=== PATIENT | female | born 1985 | race American Indian/Alaskan Native ===

== ENCOUNTER 2016-05-25 09:39 | Emergency (ER) | payer SELFPAY ==
[2016-05-25 10:13] VITALS: BP 106/72
[2016-05-25 12:21] LABS: Mucus,Urine 3+ /HPF
[2016-05-25 12:30] LABS: Bilirubin,Urine NEG (Negative); Blood,Urine SM (Negative); Ketones,Urine NEG (Negative); Leukocyte Esterase,Urine LG (Negative); Nitrite,Urine NEG (Negative); Urobilinogen,Urine < 2.0 mg/dL (<2.0)
--- NOTE | 2016-05-25 13:57 | Emergency Department Report ---
HPI - General Chief Complaint: Urogenital-Female Time Seen by Provider: 05/25/16 12:01 - HPI HPI: 31-year-old female presents today with suprapubic pain with urination. Patient states that she had a cold house E1.5 weeks ago with postprocedure bleeding and has had suprapubic pain since. Denies blood in urine now. Denies burning upon urination, increased urinary frequency or urgency. Positive for vaginal discharge, white in color with odor. Denies fever, chills, nausea, vomiting, chest pain, shortness of breath, abdominal pain. ED Past Medical Hx - Medications Home Medications: Home Medications Medication Instructions Recorded Confirmed Last Taken Type Fluconazole [Diflucan TAB] 150 mg PO ONCE #1 tablet 05/25/16 Unknown Rx Sulfamethoxazole/Trimethoprim 1 each PO BID #6 tablet 05/25/16 Unknown Rx [Bactrim DS TAB] metroNIDAZOLE [Flagyl] 500 mg PO Q12HR #14 tab 05/25/16 Unknown Rx ED Review of Systems ROS: Stated complaint: PAIN DURING URINATION/ PREV BLOOD IN URINE Other details as noted in HPI Constitutional: denies: chills, fever, malaise Eyes: denies: eye pain ENT: denies: ear pain, throat pain, congestion Respiratory: denies: cough, shortness of breath, wheezing Cardiovascular: denies: chest pain, palpitations Endocrine: no symptoms reported Gastrointestinal: abdominal pain. denies: nausea, vomiting Genitourinary: discharge. denies: urgency, dysuria, frequency, hematuria Skin: denies: rash Neurological: denies: headache, weakness Physical Exam - Physical Exam Vital Signs: Vital Signs 05/25/16 10:10 Temperature 98.1 F Pulse Rate 75 Respiratory 16 Rate Blood Pressure 106/72 O2 Sat by Pulse 100 Oximetry Physical Exam: GENERAL: The patient is well-developed and well-nourished. Patient is in NAD. HEAD: Normocephalic. Atraumatic. CHEST/LUNGS: Clear to auscultation throughout. HEART/CARDIOVASCULAR: Regular rate and rhythm. ABDOMEN: Abdomen is soft, nontender. Bowel sounds normoactive. No guarding or rebound tenderness. Negative for CVA tenderness bilaterally. GENITALS: Positive for enlargement of left Bartholin's gland, chronic. Positive for white milky discharge in the vaginal canal. No bleeding noted. EXTREMITIES: Peripheral pulses intact. Capillary refill less than 2 seconds. NEURO: Alert and oriented x 3. Normal gait. ED Course Vital Signs 05/25/16 10:10 Temperature 98.1 F Pulse Rate 75 Respiratory 16 Rate Blood Pressure 106/72 O2 Sat by Pulse 100 Oximetry ED Medical Decision Making - Lab Data Vital Signs 05/25/16 10:10 Temperature 98.1 F Pulse Rate 75 Respiratory 16 Rate Blood Pressure 106/72 O2 Sat by Pulse 100 Oximetry Lab Results 05/25/16 Range/Units Unknown Urine Color Yellow (Yellow) Urine Turbidity Cloudy (Clear) Urine pH 5.0 (5.0-7.0) Ur Specific Drain 1.027 (1.003-1.030) Urine Protein 30 mg/dl (Negative) mg/dL Urine Glucose (UA) Neg (Negative) mg/dL Urine Ketones Neg (Negative) mg/dL Urine Blood Sm (Negative) Urine Nitrite Neg (Negative) Ur Reducing Substances Not Reportable Urine Bilirubin Neg (Negative) Urine Ictotest Not Reportable Urine Urobilinogen < 2.0 (<2.0) mg/dL Ur Leukocyte Esterase Lg (Negative) Urine WBC (Auto) 76.0 H (0.0-6.0) /HPF Urine RBC (Auto) 9.0 (0.0-6.0) /HPF U Epithel Cells (Auto) 120.0 H (0-13.0) /HPF Urine Mucus 3+ /HPF Urine HCG, Qual Negative (Negative) - Medical Decision Making 31-year-old female presents today with suprapubic pain with urination and vaginal discharge. Her urinalysis reveals elevated leukocyte Estrace and urine WBC. Her wet prep is positive for clue cells. Patient is in no acute distress at this time. She will be discharged home and is encouraged to follow up with a primary care provider. She will be sent home on Bactrim and Flagyl and is encouraged to return to the emergency room for any worsening symptoms. Critical care attestation.: If time is entered above; I have spent that time in minutes in the direct care of this critically ill patient, excluding procedure time. ED Disposition Clinical Impression: Bacterial vaginosis UTI (urinary tract infection) Qualifiers: Urinary tract infection type: acute cystitis Hematuria presence: with hematuria Qualified Code(s): N30.01 - Acute cystitis with hematuria Disposition: DISCHARGED TO HOME OR SELFCARE Is pt being admited?: No Does the pt Need Aspirin: No Condition: Stable Instructions: Bacterial Vaginosis (ED), Urinary Tract Infection in Women (ED) Additional Instructions: Follow-up with primary care provider. Return to the emergency department if symptoms worsen. Prescriptions: Fluconazole [Diflucan TAB] 150 mg PO ONCE #1 tablet metroNIDAZOLE [Flagyl] 500 mg PO Q12HR #14 tab Sulfamethoxazole/Trimethoprim [Bactrim DS TAB] 1 each PO BID #6 tablet Referrals: PRIMARY CARE, [Primary Care Provider] - 3-5 Days [facility] [Outside] - 3-5 Days Forms: STI Treatment and Prevention, Work/School Release Form(ED), Accompanied Note Time of Disposition: 13:59
== END 2016-05-25 14:28 | disposition home or self-care (01) ==
LOC: ED 09:39
DX: N30.01 Acute cystitis with hematuria (principal); N76.0 Acute vaginitis
CPT/HCPCS: 81001; 81025; 87210; 87591; 99283

== ENCOUNTER 2016-06-01 00:38 | Emergency (ER) | payer OTHER ==
[2016-06-01] MEDS ORDERED: NORCO 10/325 PO ONE (07:53)
--- NOTE | 2016-06-01 09:37 | Emergency Department Report ---
- General Chief complaint: Skin/Abscess/Foreign Body Stated complaint: CYST Time Seen by Provider: 06/01/16 07:52 Source: patient Mode of arrival: Wheelchair Limitations: No Limitations - History of Present Illness Initial comments: 31-year-old female comes in with complaint of ruptured vaginal cyst that started about 2 hours ago prior to arrival to the emergency room. Patient reports that she has been dealing with a Bartholin gland cyst with the past couple of months. She reports that her [employer] doctor wants her to have surgery and comes in she reports that she wants to get it surgically removed. Patient denies any fever or chills she is currently still on Flagyl as well as Bactrim. She reports that the pain is a 10 out of 10. She reports that the cyst is covering the opening to her vaginal area. - Related Data Previous Rx's Medication Instructions Recorded Last Taken Type Fluconazole [Diflucan TAB] 150 mg PO ONCE #1 tablet 05/25/16 Unknown Rx Sulfamethoxazole/Trimethoprim 1 each PO BID #6 tablet 05/25/16 Unknown Rx [Bactrim DS TAB] metroNIDAZOLE [Flagyl TAB] 500 mg PO Q12HR #14 tab 05/25/16 Unknown Rx Ibuprofen [Motrin 800 MG tab] 800 mg PO Q8HR PRN #60 tablet 06/01/16 Unknown Rx Allergies Allergy/AdvReac Type Severity Reaction Status Date / Time No Known Allergies Allergy Unverified 05/25/16 10:10 Abscess Boil HPI - HPI Chief Complaint: Skin/Abscess/Foreign Body Stated Complaint: CYST Time Seen by Provider: 06/01/16 07:52 Home Medications: Previous Rx's Medication Instructions Recorded Last Taken Type Fluconazole [Diflucan TAB] 150 mg PO ONCE #1 tablet 05/25/16 Unknown Rx Sulfamethoxazole/Trimethoprim 1 each PO BID #6 tablet 05/25/16 Unknown Rx [Bactrim DS TAB] metroNIDAZOLE [Flagyl TAB] 500 mg PO Q12HR #14 tab 05/25/16 Unknown Rx Ibuprofen [Motrin 800 MG tab] 800 mg PO Q8HR PRN #60 tablet 06/01/16 Unknown Rx Allergies/Adverse Reactions: Allergies Allergy/AdvReac Type Severity Reaction Status Date / Time No Known Allergies Allergy Unverified 05/25/16 10:10 ED Review of Systems ROS: Stated complaint: CYST Other details as noted in HPI Constitutional: denies: chills, fever Genitourinary: dyspareunia, other (cysts in the vaginal orifice) Skin: lesions ED Past Medical Hx - Past Medical History Previous Medical History?: No - Surgical History Past Surgical History?: Yes Additional Surgical History: hernia repair - Social History Smoking Status: Current Every Day Smoker - Medications Home Medications: Home Medications Medication Instructions Recorded Confirmed Last Taken Type Fluconazole [Diflucan TAB] 150 mg PO ONCE #1 tablet 05/25/16 Unknown Rx Sulfamethoxazole/Trimethoprim 1 each PO BID #6 tablet 05/25/16 Unknown Rx [Bactrim DS TAB] metroNIDAZOLE [Flagyl TAB] 500 mg PO Q12HR #14 tab 05/25/16 Unknown Rx Ibuprofen [Motrin 800 MG tab] 800 mg PO Q8HR PRN #60 tablet 06/01/16 Unknown Rx ED Physical Exam - General Limitations: No Limitations General appearance: alert, in no apparent distress - External exam: Present: swelling (left labia minora area of the Bartholin's cysts with tenderness) - Extremities Exam Extremities exam: Present: normal inspection ED Course Vital Signs 06/01/16 00:48 Temperature 97.9 F Pulse Rate 58 L Respiratory 18 Rate Blood Pressure 103/68 [Left] O2 Sat by Pulse 99 Oximetry - Reevaluation(s) Reevaluation #1: 06/01/16 09:44 Patient reports that she feels much relief after the I&D of the Bartholin's cyst. - I & D Left Vagina Site: left Bartholin's gland Blade Size: 11 I & D Procedure: betadine prep Progress: Word catheter placed ED Medical Decision Making - Medical Decision Making Patient's been evaluated by this provider fast track. Given the patient [place] 10/325 for pain. I&D was performed when the Bartholin gland left side. Copious amount of purulent bloody clot material discharged. Discharge patient on pain medication and to continue with the antibiotics as prescribed. Critical care attestation.: If time is entered above; I have spent that time in minutes in the direct care of this critically ill patient, excluding procedure time. ED Disposition Clinical Impression: Bartholin's gland abscess Disposition: DISCHARGED TO HOME OR SELFCARE Is pt being admited?: No Does the pt Need Aspirin: No Condition: Stable Instructions: Bartholin Cyst (ED), Incision and Drainage (ED) Additional Instructions: Complete antibiotics as prescribed. Very importantly to follow up with her [employer] provider. Use pain medication as prescribed. Prescriptions: Ibuprofen [Motrin 800 MG tab] 800 mg PO Q8HR PRN #60 tablet PRN Reason: Pain Referrals: PRIMARY CARE, [Primary Care Provider] - 3-5 Days Forms: Work/School Release Form(ED)
[2016-06-01 10:10] VITALS: BP 110/70
== END 2016-06-01 10:10 | disposition home or self-care (01) ==
LOC: ED 00:38
DX: N75.1 Abscess of Bartholin's gland (principal); F17.200 Nicotine dependence, unspecified, uncomplicated

== ENCOUNTER 2016-12-17 18:05 | Emergency (ER) | payer SELFPAY ==
[2016-12-17] MEDS ORDERED: NORCO 10/325 ONE (23:42)
[2016-12-17] MEDS ORDERED: ZOFRAN ODT ONE (23:42)
--- NOTE | 2016-12-17 23:48 | Emergency Department Report ---
ED Female HPI - General Chief complaint: Skin/Abscess/Foreign Body Stated complaint: CYST Time Seen by Provider: 12/17/16 23:36 Source: patient Mode of arrival: Ambulatory Limitations: No Limitations - History of Present Illness Initial comments: 31-year-old female past medical history Bartholin's cyst presents with complaint of vaginal discomfort and vaginal swelling for several days. Denies fever or chills. MD Complaint: pelvic pain - Related Data Previous Rx's Medication Instructions Recorded Last Taken Type Fluconazole [Diflucan TAB] 150 mg PO ONCE #1 tablet 05/25/16 Unknown Rx Sulfamethoxazole/Trimethoprim 1 each PO BID #6 tablet 05/25/16 Unknown Rx [Bactrim DS TAB] metroNIDAZOLE [Flagyl TAB] 500 mg PO Q12HR #14 tab 05/25/16 Unknown Rx Ibuprofen [Motrin 800 MG tab] 800 mg PO Q8HR PRN #60 tablet 06/01/16 Unknown Rx Valacyclovir HCl [Valtrex] 1,000 mg PO BID #20 tab 06/01/16 Unknown Rx HYDROcodone/APAP 5-325 [[place] 1 each PO Q6HR PRN #14 tablet 12/17/16 Unknown Rx 5/325] Ibuprofen [Motrin] 600 mg PO Q8H PRN #25 tablet 12/17/16 Unknown Rx Sulfamethoxazole/Trimethoprim 1 each PO BID #14 tablet 12/17/16 Unknown Rx [Bactrim DS TAB] Allergies Allergy/AdvReac Type Severity Reaction Status Date / Time No Known Allergies Allergy Verified 12/17/16 18:09 ED Review of Systems ROS: Stated complaint: CYST Other details as noted in HPI ED Past Medical Hx - Past Medical History Previous Medical History?: Yes - Surgical History Additional Surgical History: hernia repair - Social History Smoking Status: Never Smoker Substance Use Type: None - Medications Home Medications: Home Medications Medication Instructions Recorded Confirmed Last Taken Type Fluconazole [Diflucan TAB] 150 mg PO ONCE #1 tablet 05/25/16 Unknown Rx Sulfamethoxazole/Trimethoprim 1 each PO BID #6 tablet 05/25/16 Unknown Rx [Bactrim DS TAB] metroNIDAZOLE [Flagyl TAB] 500 mg PO Q12HR #14 tab 05/25/16 Unknown Rx Ibuprofen [Motrin 800 MG tab] 800 mg PO Q8HR PRN #60 tablet 06/01/16 Unknown Rx Valacyclovir HCl [Valtrex] 1,000 mg PO BID #20 tab 06/01/16 Unknown Rx HYDROcodone/APAP 5-325 [[place] 1 each PO Q6HR PRN #14 tablet 12/17/16 Unknown Rx 5/325] Ibuprofen [Motrin] 600 mg PO Q8H PRN #25 tablet 12/17/16 Unknown Rx Sulfamethoxazole/Trimethoprim 1 each PO BID #14 tablet 12/17/16 Unknown Rx [Bactrim DS TAB] ED Physical Exam - General Limitations: No Limitations ED Course Vital Signs 12/17/16 18:09 Temperature 98.6 F Pulse Rate 81 Respiratory 18 Rate Blood Pressure 121/85 O2 Sat by Pulse 100 Oximetry - I & D Left Vagina Type of Procedure: Complex Site: left bartholins gland Blade Size: 11 Critical care attestation.: If time is entered above; I have spent that time in minutes in the direct care of this critically ill patient, excluding procedure time. ED Disposition Clinical Impression: Infected cyst of Bartholin's gland duct Disposition: TO HOME OR SELFCARE Is pt being admited?: No Does the pt Need Aspirin: No Condition: Stable Instructions: Incision and Drainage (ED), Bartholin Cyst (ED) Additional Instructions: Patient to return to the ED in 48 hours for wound check Prescriptions: HYDROcodone/APAP 5-325 [[place] 5/325] 1 each PO Q6HR PRN #14 tablet PRN Reason: Pain Ibuprofen [Motrin] 600 mg PO Q8H PRN #25 tablet PRN Reason: Pain Sulfamethoxazole/Trimethoprim [Bactrim DS TAB] 1 each PO BID #14 tablet Referrals: [facility] [Provider Group] - 3-5 Days Forms: Work/School Release Form(ED) Time of Disposition: 23:53
[2016-12-18 00:09] VITALS: BP 112/78
[2016-12-18] MEDS ORDERED: NORCO 10/325 PO ONE (01:20)
[2016-12-18] MEDS ORDERED: ZOFRAN ODT PO ONE (01:21)
== END 2016-12-18 00:07 | disposition home or self-care (01) ==
LOC: ED 18:05
DX: N75.8 Other diseases of Bartholin's gland (principal); Z98.890 Other specified postprocedural states
CPT/HCPCS: 87116; Q0162

== ENCOUNTER 2016-12-27 18:31 | Emergency (ER) | payer SELFPAY | END 2016-12-27 18:54 | disposition left against medical advice (07) | LOC: ED 18:31 | DX: Z53.21 Procedure and treatment not carried out due to patient leaving prior to being seen by health care provider (principal) ==

== ENCOUNTER 2016-12-27 18:32 | Emergency (ER) | payer SELFPAY | END 2016-12-28 07:00 | disposition left against medical advice (07) | LOC: ED 18:32 | DX: Z53.21 Procedure and treatment not carried out due to patient leaving prior to being seen by health care provider (principal) ==

== ENCOUNTER 2017-01-03 17:47 | Emergency (ER) | payer SELFPAY ==
[2017-01-03 18:01] VITALS: BP 115/82
[2017-01-03 18:24] LABS: Basophils % (Auto) 0.3 % (0.0-1.8); Hematocrit 37.1 % (30.3-42.9); Hemoglobin 12.1 gm/dl (10.1-14.3); Mean Corpuscular HGB Conc 33 % (30-34); Mean Corpuscular Hemoglobin 28 pg (28-32); Mean Corpuscular Volume 87 fl (79-97); Platelet Count 193 K/mm3 (140-440); Red Blood Count 4.27 M/mm3 (3.65-5.03); White Blood Count 7.4 K/mm3 (4.5-11.0)
[2017-01-03 18:44] LABS: Anion Gap 18 mmol/L; Blood Urea Nitrogen 11 mg/dL (7-17); Calcium 9.2 mg/dL (8.4-10.2); Carbon Dioxide 25 mmol/L (22-30); Chloride 102.7 mmol/L (98-107); Glucose 92 mg/dL (65-100); Potassium 4.4 mmol/L (3.6-5.0); Sodium 141 mmol/L (137-145)
== END 2017-01-04 04:10 | disposition left against medical advice (07) ==
LOC: ED 17:47
DX: R07.9 Chest pain, unspecified (principal); Z53.21 Procedure and treatment not carried out due to patient leaving prior to being seen by health care provider
CPT/HCPCS: 36415; 80048; 84484; 85025; 93005; 93010

== ENCOUNTER 2017-05-01 06:11 | Emergency (ER) | payer SELFPAY ==
[2017-05-01 06:30] VITALS: BP 117/81
[2017-05-01 10:22] LABS: Bacteria,Urine 1+ /HPF (Negative); Bilirubin,Urine NEG (Negative); Blood,Urine LG (Negative); Color,Urine Yellow (Yellow); Mucus,Urine FEW /HPF; Nitrite,Urine NEG (Negative); Urobilinogen,Urine < 2.0 mg/dL (<2.0)
[2017-05-01 10:24] LABS: RBC,Urine > 182.0 /HPF (0.0-6.0)
[2017-05-01 10:25] LABS: HCG Qualitative,Urine Negative (Negative)
--- NOTE | 2017-05-01 10:25 | Emergency Department Report ---
ED Female HPI - General Chief complaint: Urogenital-Female Stated complaint: VAGINAL BLEEDING,PAIN Time Seen by Provider: 05/01/17 09:06 Source: patient Mode of arrival: Ambulatory Limitations: No Limitations - History of Present Illness Initial comments: This is a 32-year-old female nontoxic, well nourished in appearance, no acute signs of distress presents to the ED with c/o of dysuria, polyuria, hematuria 2 days. Patient denies any back pain, chest pain, shortness of breath, fever, chills, nausea, vomiting, headache or stiff neck. Patient denies any numbness or tingling. Patient denies any vaginal discharge or vaginal bleeding. Patient denies any allergies or past medical history. Last menstrual cycle 04/2016. Complaint: dysuria -: days(s) Severity: mild Severity scale (0 -10): 8 Quality: burning Consistency: constant Improves with: none Worsens with: urination Are you Now?: No Last Menstrual Period: 02/09/17 EDC: 11/16/17 Associated Symptoms: dysuria, hematuria. denies: vaginal discharge, vaginal bleeding, abdominal pain, nausea/vomiting, fever/chills, headaches, loss of appetite, rash, seizure, shortness of breath, syncope, weakness - Related Data Sexually active: Yes Previous Rx's Medication Instructions Recorded Last Taken Type Fluconazole [Diflucan TAB] 150 mg PO ONCE #1 tablet 05/25/16 Unknown Rx Sulfamethoxazole/Trimethoprim 1 each PO BID #6 tablet 05/25/16 Unknown Rx [Bactrim DS TAB] metroNIDAZOLE [Flagyl TAB] 500 mg PO Q12HR #14 tab 05/25/16 Unknown Rx Ibuprofen [Motrin 800 MG tab] 800 mg PO Q8HR PRN #60 tablet 06/01/16 Unknown Rx Valacyclovir HCl [Valtrex] 1,000 mg PO BID #20 tab 06/01/16 Unknown Rx HYDROcodone/APAP 5-325 [[place] 1 each PO Q6HR PRN #14 tablet 12/17/16 Unknown Rx 5/325] Ibuprofen [Motrin] 600 mg PO Q8H PRN #25 tablet 12/17/16 Unknown Rx Sulfamethoxazole/Trimethoprim 1 each PO BID #14 tablet 12/17/16 Unknown Rx [Bactrim DS TAB] Sulfamethoxazole/Trimethoprim 1 each PO BID #14 tablet 05/01/17 Unknown Rx [Bactrim DS TAB] Allergies Allergy/AdvReac Type Severity Reaction Status Date / Time No Known Allergies Allergy Verified 12/17/16 18:09 ED Review of Systems ROS: Stated complaint: VAGINAL BLEEDING,PAIN Other details as noted in HPI Constitutional: denies: chills, fever Eyes: denies: eye pain, eye discharge, vision change ENT: denies: ear pain, throat pain Respiratory: denies: cough, shortness of breath, wheezing Cardiovascular: denies: chest pain, palpitations Endocrine: no symptoms reported Gastrointestinal: denies: abdominal pain, nausea, diarrhea Genitourinary: urgency, dysuria, frequency, hematuria. denies: discharge Musculoskeletal: denies: back pain, joint swelling, arthralgia Skin: denies: rash, lesions Neurological: denies: headache, weakness, paresthesias Psychiatric: denies: anxiety, depression Hematological/Lymphatic: denies: easy bleeding, easy bruising ED Past Medical Hx - Past Medical History Previous Medical History?: No - Surgical History Past Surgical History?: Yes Additional Surgical History: hernia repair - Social History Smoking Status: Never Smoker Substance Use Type: None - Medications Home Medications: Home Medications Medication Instructions Recorded Confirmed Last Taken Type Fluconazole [Diflucan TAB] 150 mg PO ONCE #1 tablet 05/25/16 Unknown Rx Sulfamethoxazole/Trimethoprim 1 each PO BID #6 tablet 05/25/16 Unknown Rx [Bactrim DS TAB] metroNIDAZOLE [Flagyl TAB] 500 mg PO Q12HR #14 tab 05/25/16 Unknown Rx Ibuprofen [Motrin 800 MG tab] 800 mg PO Q8HR PRN #60 tablet 06/01/16 Unknown Rx Valacyclovir HCl [Valtrex] 1,000 mg PO BID #20 tab 06/01/16 Unknown Rx HYDROcodone/APAP 5-325 [[place] 1 each PO Q6HR PRN #14 tablet 12/17/16 Unknown Rx 5/325] Ibuprofen [Motrin] 600 mg PO Q8H PRN #25 tablet 12/17/16 Unknown Rx Sulfamethoxazole/Trimethoprim 1 each PO BID #14 tablet 12/17/16 Unknown Rx [Bactrim DS TAB] Sulfamethoxazole/Trimethoprim 1 each PO BID #14 tablet 05/01/17 Unknown Rx [Bactrim DS TAB] ED Physical Exam - General Limitations: No Limitations General appearance: alert, in no apparent distress - Head Head exam: Present: atraumatic, normocephalic, normal inspection - Eye Eye exam: Present: normal appearance, PERRL, EOMI. Absent: scleral icterus, conjunctival injection, nystagmus, periorbital swelling, periorbital tenderness Pupils: Present: normal accommodation - ENT ENT exam: Present: normal exam, normal orophraynx, mucous membranes moist, TM's normal bilaterally, normal external ear exam - Neck Neck exam: Present: normal inspection, full ROM. Absent: tenderness, meningismus, lymphadenopathy, thyromegaly - Respiratory Respiratory exam: Present: normal lung sounds bilaterally. Absent: respiratory distress, wheezes, rales, rhonchi, stridor, chest wall tenderness, accessory muscle use, decreased breath sounds, prolonged expiratory - Cardiovascular Cardiovascular Exam: Present: regular rate, normal rhythm, normal heart sounds. Absent: irregular rhythm, systolic murmur, diastolic murmur, rubs, gallop - GI/Abdominal GI/Abdominal exam: Present: soft, normal bowel sounds. Absent: distended, tenderness, guarding, rebound, rigid, diminished bowel sounds - Rectal Rectal exam: Present: deferred - Extremities Exam Extremities exam: Present: normal inspection, full ROM, normal capillary refill. Absent: tenderness, pedal edema, joint swelling, calf tenderness - Back Exam Back exam: Present: normal inspection, full ROM. Absent: tenderness, CVA tenderness (R), CVA tenderness (L), muscle spasm, paraspinal tenderness, vertebral tenderness, rash noted - Neurological Exam Neurological exam: Present: alert, oriented X3, CN II-XII intact, normal gait, reflexes normal - Psychiatric Psychiatric exam: Present: normal affect, normal mood - Skin Skin exam: Present: warm, dry, intact, normal color. Absent: rash ED Course Vital Signs 05/01/17 05/01/17 06:25 07:04 Temperature 98.3 F 98.3 F Pulse Rate 92 H 90 Respiratory 18 17 Rate Blood Pressure 117/81 117/81 O2 Sat by Pulse 98 99 Oximetry - Reevaluation(s) Reevaluation #1: 05/01/17 10:25 Patient is speaking in full sentences with no signs of distress noted. ED Medical Decision Making - Medical Decision Making This is a 32-year-old female that presents with UTI. Patient is stable and was examined by me. UA obtained. Negative test. Patient received Rocephin 1G IM in the ED. Patient received Bactrim at discharge. Patient was instructed Follow-up with a primary care doctor in 3-5 days or if symptoms worsen and continue return to emergency room as soon as possible. At time time of discharge, the patient does not seem toxic or ill in appearance. No acute signs of distress noted. Patient agrees to discharge treatment plan of care. No further questions noted by the patient. Critical care attestation.: If time is entered above; I have spent that time in minutes in the direct care of this critically ill patient, excluding procedure time. ED Disposition Clinical Impression: UTI (urinary tract infection) Qualifiers: Urinary tract infection type: site unspecified Hematuria presence: with hematuria Qualified Code(s): N39.0 - Urinary tract infection, site not specified Disposition: - TO HOME OR SELFCARE Is pt being admited?: No Does the pt Need Aspirin: No Condition: Stable Instructions: Sulfamethoxazole/Trimethoprim (By mouth), Urinary Tract Infection in Women (ED) Additional Instructions: Follow-up with a primary care doctor in 3-5 days or if symptoms worsen and continue return to emergency room as soon as possible. Prescriptions: Sulfamethoxazole/Trimethoprim [Bactrim DS TAB] 1 each PO BID #14 tablet Referrals: NORRIS BEAL MD [Primary Care Provider] - 3-5 Days PRIMARY CARE, [Referring] - 3-5 Days [facility] [Outside] - 3-5 Days [facility] [Outside] - 3-5 Days Forms: Work/School Release Form(ED)
[2017-05-01] MEDS ORDERED: ROCEPHIN IM ONE (10:31)
[2017-05-01] MEDS ORDERED: XYLOCAINE 1% MPF 5 mL INFILTRATI ONE (10:31)
== END 2017-05-01 10:59 | disposition home or self-care (01) ==
LOC: ED 06:11
DX: N39.0 Urinary tract infection, site not specified (principal)
CPT/HCPCS: 81001; 81025; 96372; 99283; J0696

== ENCOUNTER 2017-11-26 11:16 | Emergency (ER) | payer OTHER ==
[2017-11-26 11:54] VITALS: BP 104/64
--- NOTE | 2017-11-26 13:36 | Emergency Department Report ---
ED Female HPI - General Chief complaint: Urogenital-Female Stated complaint: VAG CYST RAPTURED Time Seen by Provider: 11/26/17 13:09 Source: patient Mode of arrival: Ambulatory Limitations: No Limitations - History of Present Illness Initial comments: This is a 32-year-old -[place] female who presents to drainage from ruptured cysts and vaginal discharge. Patient states she had cysts to the area for several years. She was follow by [facility] in the past but has not had time to follow-up with them. Patient states yesterday this cyst rupture and she is now having foul drainage from site. Patient states she is also having some vaginal discharge for 2 weeks with yellowish discharge. She is also complaining of low pelvic pain is intermittent but currently resolved. She admits to exposure to sexually transmitted diseases. Patient denies frequency, urgency, dysuria, low back pain, and fever. MD Complaint: vaginal discharge, pelvic pain Onset/Timin -: week(s) Location: labia Radiation: non-radiating Severity: mild Severity scale (0 -10): 2 Consistency: intermittent Improves with: none Worsens with: none Are you Now?: No Associated Symptoms: vaginal discharge, abdominal pain (suprapubic pressure). denies: vaginal bleeding, nausea/vomiting, fever/chills, headaches, loss of appetite, dysuria, hematuria, rash, seizure, shortness of breath, syncope, weakness - Related Data Sexually active: Yes Previous Rx's Medication Instructions Recorded Last Taken Type Fluconazole [Diflucan TAB] 150 mg PO ONCE #1 tablet 05/25/16 Unknown Rx Sulfamethoxazole/Trimethoprim 1 each PO BID #6 tablet 05/25/16 Unknown Rx [Bactrim DS TAB] metroNIDAZOLE [Flagyl TAB] 500 mg PO Q12HR #14 tab 05/25/16 Unknown Rx Ibuprofen [Motrin 800 MG tab] 800 mg PO Q8HR PRN #60 tablet 06/01/16 Unknown Rx Valacyclovir HCl [Valtrex] 1,000 mg PO BID #20 tab 06/01/16 Unknown Rx HYDROcodone/APAP 5-325 [[place] 1 each PO Q6HR PRN #14 tablet 12/17/16 Unknown Rx 5/325] Ibuprofen [Motrin] 600 mg PO Q8H PRN #25 tablet 12/17/16 Unknown Rx Sulfamethoxazole/Trimethoprim 1 each PO BID #14 tablet 12/17/16 Unknown Rx [Bactrim DS TAB] Sulfamethoxazole/Trimethoprim 1 each PO BID #14 tablet 05/01/17 Unknown Rx [Bactrim DS TAB] Fluconazole [Diflucan] 150 mg PO DAILY #1 tablet 11/26/17 Unknown Rx metroNIDAZOLE [Metronidazole] 500 mg PO BID #14 tablet 11/26/17 Unknown Rx Allergies Allergy/AdvReac Type Severity Reaction Status Date / Time No Known Allergies Allergy Verified 12/17/16 18:09 ED Review of Systems ROS: Stated complaint: VAG CYST RAPTURED Other details as noted in HPI Constitutional: denies: chills, fever Respiratory: denies: cough, shortness of breath, wheezing Cardiovascular: denies: chest pain, palpitations Gastrointestinal: denies: abdominal pain, nausea, vomiting, diarrhea Genitourinary: discharge, other (cyst of labia). denies: urgency, dysuria Musculoskeletal: denies: back pain, joint swelling, arthralgia Skin: denies: rash, lesions Neurological: denies: headache, weakness, paresthesias Psychiatric: denies: anxiety, depression ED Past Medical Hx - Past Medical History Previous Medical History?: Yes Hx GERD: Yes Additional medical history: Vaginal cyst, poss Bartholin cyst - Surgical History Past Surgical History?: Yes Additional Surgical History: hernia repair - Social History Smoking Status: Smoker, Current Status Unknown Substance Use Type: Marijuana - Medications Home Medications: Home Medications Medication Instructions Recorded Confirmed Last Taken Type Fluconazole [Diflucan TAB] 150 mg PO ONCE #1 tablet 05/25/16 Unknown Rx Sulfamethoxazole/Trimethoprim 1 each PO BID #6 tablet 05/25/16 Unknown Rx [Bactrim DS TAB] metroNIDAZOLE [Flagyl TAB] 500 mg PO Q12HR #14 tab 05/25/16 Unknown Rx Ibuprofen [Motrin 800 MG tab] 800 mg PO Q8HR PRN #60 tablet 06/01/16 Unknown Rx Valacyclovir HCl [Valtrex] 1,000 mg PO BID #20 tab 06/01/16 Unknown Rx HYDROcodone/APAP 5-325 [[place] 1 each PO Q6HR PRN #14 tablet 12/17/16 Unknown Rx 5/325] Ibuprofen [Motrin] 600 mg PO Q8H PRN #25 tablet 12/17/16 Unknown Rx Sulfamethoxazole/Trimethoprim 1 each PO BID #14 tablet 12/17/16 Unknown Rx [Bactrim DS TAB] Sulfamethoxazole/Trimethoprim 1 each PO BID #14 tablet 05/01/17 Unknown Rx [Bactrim DS TAB] Fluconazole [Diflucan] 150 mg PO DAILY #1 tablet 11/26/17 Unknown Rx metroNIDAZOLE [Metronidazole] 500 mg PO BID #14 tablet 11/26/17 Unknown Rx ED Physical Exam - General Limitations: No Limitations General appearance: alert, in no apparent distress - Respiratory Respiratory exam: Present: normal lung sounds bilaterally. Absent: respiratory distress - Cardiovascular Cardiovascular Exam: Present: regular rate, normal rhythm. Absent: systolic murmur, diastolic murmur, rubs, gallop - GI/Abdominal GI/Abdominal exam: Present: soft, normal bowel sounds. Absent: organomegaly, mass - External exam: Present: normal external exam Speculum exam: Present: vaginal discharge (malodorous white curdy discharge). Absent: erythema, cervical discharge, vaginal bleeding, foreign body, tissue, laceration Bi-manual exam: Present: normal bi-manual exam - Back Exam Back exam: Present: normal inspection. Absent: CVA tenderness (R), CVA tenderness (L), rash noted - Neurological Exam Neurological exam: Present: alert, oriented X3, normal gait - Psychiatric Psychiatric exam: Present: normal affect, normal mood - Skin Skin exam: Present: warm, dry, intact, normal color. Absent: rash ED Course Vital Signs 11/26/17 11:49 Temperature 98.6 F Pulse Rate 77 Respiratory 18 Rate Blood Pressure 104/64 O2 Sat by Pulse 100 Oximetry ED Medical Decision Making - Medical Decision Making This is a 32-year-old -[place] female who presents with vaginal discharge and ruptured vaginal cyst for 2 weeks. Patient was examined by me. Vitals are stable and in no acute distress. Obtained GC and wet prep via pelvic exam, and UA, urine hCG. Wet prep positive for clue cells and yeast, negative Trichomonas. Start metronidazole and Diflucan for bacterial vaginitis vaginal candidiasis. Patient given referrals to [facility] for evaluation of recurrent cyst, no visualized cyst on exam today. Discharged home in stable condition. Discussed prevention options. F/U with PCP and [facility]. Critical care attestation.: If time is entered above; I have spent that time in minutes in the direct care of this critically ill patient, excluding procedure time. ED Disposition Clinical Impression: Vaginal discharge, Bacterial vaginitis, Vaginal candidiasis Disposition: - TO HOME OR SELFCARE Is pt being admited?: No Does the pt Need Aspirin: No Condition: Stable Instructions: Bacterial Vaginosis (ED), Vulvovaginal Candidiasis (ED) Additional Instructions: Avoid drinking alcohol while taking antibiotics and for 24 hours after completion. Continue safe sexual intercourse. Follow up with [facility] for recurrent vaginal cyst. Follow up with Primary Care Provider or health department. Prescriptions: Fluconazole [Diflucan] 150 mg PO DAILY #1 tablet metroNIDAZOLE [Metronidazole] 500 mg PO BID #14 tablet Referrals: HOUSTON ADAMES MD [Staff Physician] - 3-5 Days [facility] [Outside] - 3-5 Days Forms: STI Treatment and Prevention Time of Disposition: 15:07 Print Language: MONTSERRATIAN
[2017-11-26 14:32] LABS: Bilirubin,Urine NEG (Negative); Blood,Urine NEG (Negative); Color,Urine Yellow (Yellow); Mucus,Urine 1+ /HPF; Protein,Urine <15 mg/dL mg/dL (Negative)
[2017-11-26 14:36] LABS: HCG Qualitative,Urine Negative (Negative)
== END 2017-11-26 15:08 | disposition home or self-care (01) ==
LOC: ED 11:16
DX: N76.0 Acute vaginitis (principal); B96.89 Other specified bacterial agents as the cause of diseases classified elsewhere; B37.3 Candidiasis of vulva and vagina; K21.9 Gastro-esophageal reflux disease without esophagitis; F12.10 Cannabis abuse, uncomplicated
CPT/HCPCS: 81001; 81025; 87210; 87591; 99284

== ENCOUNTER 2018-06-12 13:30 | Emergency (ER) | payer BC ==
--- NOTE | 2018-06-12 14:04 | Emergency Department Report ---
Chief Complaint: Abdominal Pain Stated Complaint: ABD PAIN/DISCOMFORT VAGINAL AREA Time Seen by Provider: 06/12/18 14:00 - HPI History of Present Illness: Pt is c/o lower abdominal pain that began two weeks ago stabbing pain (+) urinary frequency, vaginal discharge no fever one episode of emesis denies itching or burning has not had menstrual cycle in a year, irregular cycles not on contraceptive, has not seen [facility] in over a year MSE complete MSE screening note: Focused history and physical exam performed. Due to findings the following was ordered: UA, urine preg, abdominal labs, and pelvic US ED Disposition for MSE Condition: Stable Instructions: Abdominal Pain (ED)
[2018-06-12 14:56] LABS: Basophils % (Auto) 0.1 % (0.0-1.8); Eosinophils % (Auto) 0.7 % (0.0-4.3); Hematocrit 36.6 % (30.3-42.9); Hemoglobin 12.2 gm/dl (10.1-14.3); Lymphocytes # (Auto) 3.4 K/mm3 (1.2-5.4); Lymphocytes % (Auto) 54.1 % (13.4-35.0); Mean Corpuscular HGB Conc 33 % (30-34); Mean Corpuscular Volume 88 fl (79-97); Monocytes # (Auto) 0.5 K/mm3 (0.0-0.8); Monocytes % (Auto) 8.5 % (0.0-7.3); Platelet Count 196 K/mm3 (140-440); Red Blood Count 4.18 M/mm3 (3.65-5.03); Red Cell Distribution Width 13.2 % (13.2-15.2)
[2018-06-12 15:09] LABS: BUN/Creatinine Ratio 11; Blood Urea Nitrogen 8 mg/dL (7-17); Calcium 9.5 mg/dL (8.4-10.2); Hemolysis Index 21
--- NOTE | 2018-06-12 16:23 | Emergency Department Report ---
HPI - General Chief Complaint: Abdominal Pain Time Seen by Provider: 06/12/18 14:00 - HPI HPI: 33-year-old female presents to the emergency department with complaint of some pelvic pain and vaginal discomfort along with some milky white discharge. It has been going on intermittently for the past few weeks. She denies any dysuria, fever, nausea, vomiting, back pain. She denies any past medical history. She has not taken anything for her symptoms prior to presentation. She does not have a primary care physician or [facility]ITION SERVICES [facility]PER[facility]OR. ED Past Medical Hx - Past Medical History Hx GERD: Yes Additional medical history: Vaginal cyst, poss Bartholin cyst - Surgical History Additional Surgical History: hernia repair - Social History Smoking Status: Current Every Day Smoker Substance Use Type: None - Medications Home Medications: Home Medications Medication Instructions Recorded Confirmed Last Taken Type Sulfamethoxazole/Trimethoprim 1 each PO BID #6 tablet 05/25/16 Unknown Rx [Bactrim DS TAB] Ibuprofen [Motrin 800 MG tab] 800 mg PO Q8HR PRN #60 tablet 06/01/16 Unknown Rx Valacyclovir HCl [Valtrex] 1,000 mg PO BID #20 tab 06/01/16 Unknown Rx HYDROcodone/APAP 5-325 [[place] 1 each PO Q6HR PRN #14 tablet 12/17/16 Unknown Rx 5/325] Ibuprofen [Motrin] 600 mg PO Q8H PRN #25 tablet 12/17/16 Unknown Rx Sulfamethoxazole/Trimethoprim 1 each PO BID #14 tablet 12/17/16 Unknown Rx [Bactrim DS TAB] Sulfamethoxazole/Trimethoprim 1 each PO BID #14 tablet 05/01/17 Unknown Rx [Bactrim DS TAB] Fluconazole [Diflucan] 150 mg PO DAILY #1 tablet 11/26/17 Unknown Rx metroNIDAZOLE [Metronidazole] 500 mg PO BID #14 tablet 11/26/17 Unknown Rx Fluconazole [Diflucan TAB] 150 mg PO ONCE #1 tablet 06/12/18 Unknown Rx metroNIDAZOLE [Flagyl TAB] 500 mg PO Q12HR #14 tab 06/12/18 Unknown Rx ED Review of Systems ROS: Stated complaint: ABD PAIN/DISCOMFORT VAGINAL AREA Other details as noted in HPI Comment: All other systems reviewed and negative Constitutional: denies: chills, fever Eyes: denies: eye pain, vision change ENT: denies: ear pain, throat pain Respiratory: denies: cough, shortness of breath Cardiovascular: denies: chest pain, palpitations Gastrointestinal: denies: abdominal pain, vomiting Genitourinary: discharge, other (pelvic pain). denies: dysuria Musculoskeletal: denies: back pain, arthralgia Skin: denies: rash, lesions Neurological: denies: headache, weakness Physical Exam - Physical Exam Vital Signs: Vital Signs 06/12/18 14:00 Temperature 98.1 F Pulse Rate 68 Respiratory 18 Rate Blood Pressure 118/73 O2 Sat by Pulse 100 Oximetry Physical Exam: GENERAL: The patient is well-developed well-nourished. HEENT: Normocephalic. Atraumatic. Patient has moist mucous membranes. EYES: Extraocular motions are intact. NECK: Supple. Trachea is midline. CHEST/LUNGS: Clear to auscultation. There is no respiratory distress noted. HEART/CARDIOVASCULAR: Regular. There is no tachycardia. There is no obvious murmur. ABDOMEN: Abdomen is soft, nontender. Patient has normal bowel sounds. There is no abdominal distention. SKIN: Skin is warm and dry. NEURO: The patient is awake, alert, and oriented. The patient is cooperative. The patient has no focal neurologic deficits. The patient has normal speech. MUSCULOSKELETAL: There is no tenderness or deformity. There is no limitation r casimiro of motion. There is no evidence of acute injury. PELVIC: Patient does have a slightly enlarged left sided Bartholin's gland. A malodorous thin white discharge is seen in the vaginal vault. ED Course Vital Signs 06/12/18 14:00 Temperature 98.1 F Pulse Rate 68 Respiratory 18 Rate Blood Pressure 118/73 O2 Sat by Pulse 100 Oximetry - Reevaluation(s) Reevaluation #1: 06/13/18 00:07 the pelvic examination was done with nurse Weinstein at bedside to supervisor shearing. ED Medical Decision Making - Lab Data Result diagrams: 06/12/18 14:21 06/12/18 14:21 - Radiology Data Radiology results: report reviewed PROCEDURE: US PELVIS DUPLEX DOPPLER COMP TECHNIQUE: Real-time transabdominal sonography in multiple planes of the pelvis was performed. The pelvic structures were not optimally visualized. Transvaginal sonography was then performed to better evaluate the structures and/or abnormalities described below with image documentation. Grayscale, color flow Doppler imaging, and velocity spectral waveform analysis of the ovaries was employed (duplex imaging). HISTORY: PELVIC PAIN COMPARISONS: None . FINDINGS: UTERUS Size: 8.4 x 3.8 x 5.6 cm. Endometrial thickness: 5.5 mm. Orientation: anteverted. Cervix: Normal. Fibroids/masses: None. RIGHT Ovary: 2.2 x 1.8 x 2.5 cm. Appearance: Normal. Doppler images: Normal spectral waveforms and color flow images of the arterial inflow and venous outflow.. LEFT Ovary: 2.8 x 1.9 x 3.4 cm. Appearance: There is a hemorrhagic cyst measuring 16 mm.. Doppler images: Normal spectral waveforms and color flow images of the arterial inflow and venous outflow.. Pelvic fluid: None. IMPRESSION: There is no ovarian torsion. There is a probable hemorrhagic left ovarian cyst measuring 16 mm. The uterus is unremarkable.. This document is electronically signed by Gregory Seymour MD., June 12 2018 10:13:32 PM ET Transcribed By: CO Dictated By: GREGORY SEYMOUR MD Electronically Authenticated By: GREGORY SEYMOUR MD Signed Date/Time: 06/12/18 2757 - Medical Decision Making This patient presents to the emergency department with a complaint of some pelvic discomfort, vaginal discharge. On examination she has a slightly enlarged left Bartholin's gland and some malodorous White discharge. Wet prep was positive for bacterial vaginosis and negative for trich. The rest of labs were mostly unremarkable including CBC, BMP. Urinalysis did not show any urinary tract infection and the patient is not . Pelvic ultrasound was done that may show a left ovarian cyst but otherwise there is no protrusion and no other acute process seen. The patient was given referrals for primary care and [facility] SERVICES SUPER[facility]. She will return to the ER with any worsening of her symptoms or any acute distress. - Differential Diagnosis , UTI, BV, ovarian cyst Critical Care Time: No Critical care attestation.: If time is entered above; I have spent that time in minutes in the direct care of this critically ill patient, excluding procedure time. ED Disposition Clinical Impression: Pelvic pain, Vaginal discharge, Bacterial vaginosis Ovarian cyst Qualifiers: Laterality: left Qualified Code(s): N83.202 - Unspecified ovarian cyst, left side Disposition: DC-01 TO HOME OR SELFCARE Is pt being admited?: No Condition: Stable Instructions: Bacterial Vaginosis (ED), Abdominal Pain (ED) Additional Instructions: Please follow up with a primary care physician and [facility]ITION SERVICES SUPERVISOR. I have given you multiple referrals for these physicians. Return to the emergency Department with any worsening of your symptoms or any acute distress. As we discussed, the medication to treat the bacterial vaginosis, Flagyl/metronidazole, has a very bad reaction is mixed with alcohol of any quantity. It can cause nausea, vomiting and abdominal pain and therefore please do not drink any alcohol, any quantity, for up to 2 days after finishing the medication. Prescriptions: Fluconazole [Diflucan TAB] 150 mg PO ONCE #1 tablet metroNIDAZOLE [Flagyl TAB] 500 mg PO Q12HR #14 tab Referrals: RUDDY BOWLINGLAFE MD [facility] [Primary Care Provider] - 3-5 Days [facility] [Provider Group] - 3-5 Days [facility] [Provider Group] - 3-5 Days DARLENE GARAY MD [Staff Physician] - 3-5 Days Forms: Work/School Release Form(ED) Time of Disposition: 18:43
[2018-06-12 17:37] LABS: Bilirubin,Urine NEG (Negative); Blood,Urine NEG (Negative); Color,Urine Yellow (Yellow); Protein,Urine <15 mg/dL mg/dL (Negative)
[2018-06-12 17:46] LABS: HCG Qualitative,Urine Negative (Negative)
[2018-06-12 19:03] VITALS: BP 112/70
--- NOTE | 2018-06-12 22:15 | Ultrasound Report ---
PROCEDURE: US PELVIS DUPLEX DOPPLER COMP TECHNIQUE: Real-time transabdominal sonography in multiple planes of the pelvis was performed. The p elvic structures were not optimally visualized. Transvaginal sonography was then performed to better evaluate the structures and/or abnormalities described below with image documentation. Grayscale, col or flow Doppler imaging, and velocity spectral waveform analysis of the ovaries was employed (duplex imaging). HISTORY: PELVIC PAIN COMPARISONS: None . FINDINGS: UTERUS Size: 8.4 x 3.8 x 5.6 cm. Endometrial thickness: 5.5 mm. Orientation: anteverted. Cervix: Normal. Fibroids/masses: None. RIGHT Ovary: 2.2 x 1.8 x 2.5 cm. Appearance: Normal. Doppler images: Normal spectral waveforms and color flow images of the arterial inflow and venous out flow.. LEFT Ovary: 2.8 x 1.9 x 3.4 cm. Appearance: There is a hemorrhagic cyst measuring 16 mm.. Doppler images: Normal spectral waveforms and color flow images of the arterial inflow and venous out flow.. Pelvic fluid: None. IMPRESSION: There is no ovarian torsion. There is a probable hemorrhagic left ovarian cyst measuring 16 mm. The uterus is unremarkable.. This document is electronically signed by Gregory Spaulding MD., June 12 2018 10:13:32 PM ET
--- NOTE | 2018-06-15 07:07 | Ultrasound Report ---
PROCEDURE: US TRANSVAGINAL TECHNIQUE: Transvaginal grayscale, color and spectral Doppler pelvic ultrasound HISTORY: PELVIC PAIN COMPARISONS: None FINDINGS: Anteverted uterus measures 8.4 x 3.8 x 5.6 cm. Myometrium is within normal limits. Endometrium is hien ogeneous and measures approximately 5 mm in thickness. Nabothian cysts are noted. No significant free fluid in the pelvis. Normal echotexture, color and spectral Doppler evaluation of the right ovary, which measures 2.2 x 1. 8 x 2.5 cm. The left ovary measures 2.8 x 1.9 x 3.4 cm and demonstrates normal color and spectral Doppler evaluat ion. Several small left ovarian follicles are adjacent to a slightly more heterogeneous cystic appear ing structure measuring up to 1.6 cm. IMPRESSION: Several adjacent left ovarian follicles and likely an involuting functional cyst measuring less than 2 cm. Consider additional imaging for worsening/persistent symptoms. This document is electronically signed by Kulwinder Wren MD., June 15 2018 07:05:37 AM ET
== END 2018-06-12 19:03 | disposition home or self-care (01) ==
LOC: ED 13:30
DX: N76.0 Acute vaginitis (principal); N83.202 Unspecified ovarian cyst, left side; K21.9 Gastro-esophageal reflux disease without esophagitis; F17.200 Nicotine dependence, unspecified, uncomplicated
CPT/HCPCS: 36415; 76830; 80048; 81001; 81025; 83690; 85025; 87210; 87591; 93975; 99284

== ENCOUNTER 2019-04-05 12:00 | Emergency (ER) | payer SELFPAY | END 2019-04-06 02:27 | LOC: ED 12:00 | DX: R53.1 Weakness (principal); Z53.21 Procedure and treatment not carried out due to patient leaving prior to being seen by health care provider ==